=== PATIENT | female | born 1995 | race Two or more races ===

== ENCOUNTER → 2021-06-03 | Outpatient (BNVA) | payer BC, SELFPAY | END | disposition home or self-care (01) | PROVIDERS: PCP Physician Assistant; Visit Provider Urology | DX: I10 Essential (primary) hypertension (principal) ==

== ENCOUNTER 2025-03-25 06:01 | Emergency (ER) | payer BC, SELFPAY ==
[2025-03-25 06:02] VITALS: BMI 36.3
[2025-03-25 06:17] VITALS: BP 149/87; PULSE 109; RESP 16; TEMP 36.6; O2SAT 96
--- NOTE | 2025-03-25 06:28 | XR_ITS ---
EXAMINATION: PA lateral chest 2 views TECHNIQUE: Upright PA lateral chest 2 views Date and time: March 25, 2025, 0652 hours INDICATIONS: Shortness of breath coughing beginning 2 days ago. FINDINGS: Normal heart size Lungs are clear. Osseous structures intact IMPRESSION: No active disease
[2025-03-25] MEDS: IBUPROFEN TAB 600 MG TABLET PO (06:39)
[2025-03-25 07:19] LABS: Basophils # (Auto) 0.0 Thou/mm3 (0.0-0.2); Basophils % (Auto) 0 % (0-2.5); Eosinophils # (Auto) 0.1 Thou/mm3 (0.0-0.5); Eosinophils % (Auto) 2 % (0-10); Hematocrit 38.6 % (36.0-46.0); Hemoglobin 12.7 g/dL (12.0-16.0); Immature Granulocytes Auto 0.02 Thou/mm3 (0.00-0.00); Lymphocytes # (Auto) 2.0 Thou/mm3 (1.0-4.8); Lymphocytes % (Auto) 27 % (10-50); Mean Corpuscular HGB Conc 32.9 g/dl (31.0-37.0); Mean Corpuscular Hemoglobin 28.5 pg (25.0-35.0); Mean Corpuscular Volume 87 fL (80-100); Monocytes # (Auto) 0.7 Thou/mm3 (0.0-0.8); Monocytes % (Auto) 10 % (0-12); Neutrophils # (Auto) 4.6 Thou/mm3 (1.8-7.7); Neutrophils % (Auto) 61 % (37-80); Nucleated Red Blood Cell # 0.00 Thou/mm3 (0.00-0.00); Nucleated Red Blood Cell % 0 /100 WBC (0); Platelet Count 259 Thou/mm3 (140-440); RDW Standard Deviation 40.6 fL (36.4-46.3); Red Blood Count 4.46 Miln/mm3 (4.00-5.20); White Blood Count 7.5 Thou/mm3 (3.6-11.0)
[2025-03-25 07:37] LABS: Alanine Aminotransferase 52 U/L (10-49); Albumin, Serum 4.6 gm/dL (3.5-5.0); Albumin/Globulin Ratio 1.4 (1.2-2.2); Alkaline Phosphatase 77 U/L (46-116); Anion Gap 8 (7-16); Aspartate Amino Transferase 41 U/L (0-34); BUN/Creatinine Ratio 13 Ratio (12-20); Bilirubin,Total 0.7 mg/dL (0.3-1.2); Blood Urea Nitrogen 9 mg/dL (9-23); Calcium 9.5 mg/dL (8.3-10.6); Calcium (Corrected) 9.5 mg/dL (8.5-10.1); Carbon Dioxide 24.6 mMol/L (20.0-31.0); Chloride 104 mMol/L (98-107); Creatinine (Component) 0.7 mg/dL (0.6-1.3); Estimated Creatinine Clearance 128.5 mL/min (>60); Globulin 3.3 gm/dL (2.3-3.5); Glucose 80 mg/dL (74-106); Lipase 25 U/L (12-53); Osmolality,Calculated 271 (275-295); Potassium 4.1 mMol/L (3.4-5.1); Sodium 137 mMol/L (136-145); Total Protein 7.9 gm/dL (5.7-8.2); Troponin I < 0.002 ng/mL (0.0-0.045); eGFR > 60 See Note
[2025-03-25 07:45] LABS: B-Type Natriuretic Peptide < 20 pg/mL (0-100); D-Dimer < 250 ng/mL (<600)
[2025-03-25 08:02] LABS: HCG,Qualitative Serum Negative
--- NOTE | 2025-03-25 08:16 | EDNOTE_ITS ---
<Statement entered by Sharon Torres MD - 03/25/25 08:56> As co-signing physician, I was present and available for consult prn. I concur with the plan and care as documented by the midlevel provider. ED Chest Pain RME/HPI General Chief Complaint: Chest Pain Stated Complaint: CHEST PAIN Time Seen by Provider: 03/25/25 06:03 Arrival date/time: 03/25/25 06:01 Related Data Home Medications ?Medication ?Instructions ?Recorded ?Confirmed vitamins with calcium 1 tab PO QDAY 04/30/23 08/24/23 no.72-iron 27 mg-folic acid 1 mg tablet ( Plus (calcium carbonate)) Previous Rx's ?Medication ?Instructions ?Recorded hydrocodone 5 mg-acetaminophen 325 1 tab PO Q6H PRN pa in #20 tabs 08/27/23 mg tablet ibuprofen 600 mg tablet 600 mg PO Q6H PRN pain #30 t abs 08/28/23 Allergies Allergy/AdvReac Type Severity Reaction Status Date / Time phenazopyridine (From Allergy Severe Anaphylaxis Verified 03/25/25 06:05 Pyridium) ED Exam Narrative Physical exam: Constitutional: Patient alert and oriented. Well appearing. No acute distress. Not toxic appearing. Head: Normocephalic, atraumatic. Eyes: Periorbital regions bilaterally normal to inspection. Conjunctiva clear bilaterally. Sclera anicteric bilaterally. Pupils equal, round, reactive to light bilaterally. Extraocular movements intact bilaterally. Mouth/Throat: Mucous membranes moist. No stridor or muffled voice. No trismus. Handling secretions without difficulty. Airway widely patent. Neck: Supple. Trachea midline. No JVD. No nuchal rigidity. Normal range of motion. Respiratory: Normal effort. No accessory muscle use or respiratory distress. Lungs clear to auscultation bilaterally without rhonchi, wheezes, or crackles. Positive left sided chest wall tenderness at midclavicular line around the 2nd and 3rd intercostal spaces. Cardiovascular: RRR. Normal S1/S2. No murmurs or rubs. Radial pulses intact bilaterally. Abdomen: Soft. Non-distended. Non-tender throughout. No pulsatile mass. No guarding or rebound. Negative Pink?s sign. Negative McBurney?s point tenderness. Negative Rovsing?s. Back: No midline tenderness or step-offs. No CVA tenderness to palpation bilaterally. Upper Extremities: No gross deformities. Lower Extremities: No gross deformities. No edema or calf tenderness. Neuro: Speech normal. No gross motor or sensory deficits to upper or lower extremities bilaterally. GCS 15. CN II?XII grossly intact. Skin: Warm, dry, normal color. Psych: Normal affect. Cooperative. Normal insight. Course Course Course Narrative: MDM The patient presents with chest pain. Differential diagnosis includes musculoskeletal chest pain versus costochondritis versus anxiety Less likely etiologies include: PE: Wells low risk ACS: HEART Score low risk, suggesting low probability of major adverse cardiac event in the next 6 weeks. Aortic Dissection: Unlikely given palpable pulses, warm extremities bilaterally, and no radiation of pain. Tamponade: Unlikely given absence of hypotension, muffled heart sounds, JVD, friction rub, narrow pulse pressure ?30, low-voltage EKG, or enlarged cardiac silhouette. Endocarditis: Unlikely as no Humphrey criteria present (Patel spots, splinter hemorrhages, Osler nodes). CHF: Unlikely given no JVD, peripheral edema, or orthopnea. The patient is clinically well-appearing and stable. Evaluation today does not suggest cardiac ischemia, pulmonary embolism, aortic dissection, or other life- threatening etiology. These diagnoses were considered and excluded clinically and with appropriate studies. Nonetheless, it is understood by both patient and provider that no evaluation can entirely exclude such conditions. Labs without severe metabolic or electrolyte abnormality including a negative troponin, D-dimer, BNP Admission was considered but is not indicated based on today?s evaluation and low-risk stratification. The patient is strongly encouraged to follow up with their PMD and/or dishwasher within the next 1-2 days. Strict ER return precautions advised for any continued, worsening, or new symptoms or any concerns at all. At the time of reassessment prior to discharge, the patient remains alert and oriented ?3 with GCS 15. Vitals are normal, pain is controlled, and the patient is tolerating oral intake without nausea or vomiting. The patient is agreeable to discharge and verbalizes understanding of the diagnosis, studies, treatment plan, medications (including side effects/precautions), and strict ER return precautions as discussed in the ED. All concerns were addressed, and the patient is comfortable with the plan. Quality Measures none Orders Category Date Time Status Continuous EKG monitoring NOW Care 03/25/25 06:28 Active Continuous Pulse Oximetry NOW Care 03/25/25 06:28 Active EKG (ED ONLY) *Do not use* NOW Care 03/25/25 06:06 Completed EKG (ED ONLY) *Do not use* NOW Care 03/25/25 06:28 Completed EKG (ED Only) Stat Exams 03/25/25 06:06 Ordered EKG (ED Only) Stat Exams 03/25/25 06:28 Ordered XR chest 2V Stat Exams 03/25/25 06:28 Completed B-Type Natriuretic Peptide Stat Lab 03/25/25 07:05 Completed CBC Stat Lab 03/25/25 07:05 Completed Comprehensive Metabolic Panel Stat Lab 03/25/25 07:05 Completed D-Dimer Stat Lab 03/25/25 07:05 Completed HCG,Qualitative Serum Stat Lab 03/25/25 07:05 Completed INR [Prothrombin Time with INR] Stat Lab 03/25/25 07:05 Completed Lipase Stat Lab 03/25/25 07:05 Completed Troponin I Stat Lab 03/25/25 07:05 Completed Ibuprofen Tab [Motrin Tab] Med 03/25/25 06:28 Discontinued 600 mg PO X1 ONE Vital Signs Vital signs: Vital Signs Temperature 97.8 F 03/25/25 06:17 Pulse Rate 109 H 03/25/25 06:17 Respiratory Rate 16 03/25/25 06:17 Blood Pressure 149/87 H 03/25/25 06:17 Pulse Oximetry (%) 96 03/25/25 06:17 Oxygen Delivery Method Room Air 03/25/25 06:17 PROCEDURES: EKG Interpretation #1: Date of EK03/25/25 Time of EK:15 Interpretation: Interpreted by me EKG Impression: Normal sinus rhythm Additional EKG comment: Isolated T wave inversion noted in lead III and nonspecific ST abnormalities noted throughout however no ST elevation, right axis deviation, sinus tachycardia Chest Pain Patient data External records reviewed:: [facility] previous records Clinical information provided by:: patient Social determinants that could affect healthcare access:: none Patient has the following chronic illnesses:: As noted How is presenting disease/condition affected by chronic disease/condition?: exacerbated by Evaluation data The following diagnostics were reviewed and interpreted by me:: other (specify) Lab and/or radiology exams considered but not ordered:: Additional Labs and radiology considered, but not ordered as they were not clinically indicated at this time. Interpretation Summary: As noted, chest x-ray without acute cardiopulmonary abnormality Medications / Prescriptions Medications or Prescriptions considered but not ordered:: I ordered medications based on the patient?s clinical needs and assessment, as documented in the chart. For medications not prescribed, they were not indicated for the patient's current condition, and I determined they were unnecessary at this time to avoid potential risks or complications. Medication administrations:: Medication Administration History Discontinued Medications Ibuprofen (Ibuprofen Tab 600 Mg Tablet) 600 mg PO X1 ONE Stop: 03/25/25 06:29 Last Admin: 03/25/25 06:39 Dose: 600 mg Documented By: WHIT As noted Consultations Consultation(s) initiated? (list below): No Diagnosis Most likely diagnosis given after review of the tests above:: As noted Admission Indicated Admission indicated?: not indicated Admission Request Was there a request for admission?: No Disposition Plan Disposition Plan: Discharge Discharge Attestation Discharge Attestation: The patient and all family members were given an opportunity to ask questions and understood the discharge instructions. Discharge instructions specifically effects, indications for sooner follow up or return to the emergency department, and the expected course of current diagnosis. Patient condition: Stable Discharge Plan Plan Patient Disposition: HOME (Self Care) Patient condition on transfer: Stable Prescriptions/Referrals Prescriptions/Med Rec: No Action hydrocodone-acetaminophen 5-325 mg tablet 1 tab PO Q6H MDD 4 PRN (Reason: pain) Qty: 20 0RF ibuprofen 600 mg tablet 600 mg PO Q6H PRN (Reason: pain) Qty: 30 0RF Plus (calcium carb) 27 mg iron- 1 mg tablet 1 tab PO QDAY Patient Comments: Take 1 tablet by mouth once a day Referrals: Natalia Everett PA-C [Primary Care Provider, Family Practice] - In 1 week Problem List Clinical Impression: Chest pain Patient/Caregiver Discharge Instructions Education Materials: ED Chest Pain, Uncertain Cause Additional Instructions: Follow up with your primary medical doctor within 24 hours. Return to the Emergency Room immediately for any new, worsening, continuing symptoms or any concerns at all. Return to the Emergency Room within 24 hours if you are unable to follow up with your primary medical doctor within 24 hours. Follow-up with a dishwasher this week as well Print Language: Polish Stand Alone Forms: Deanna Award Info., Patient Portal Info Letter TIFFANIE/EVAN Supervising Physician BRUCE Supervising Physician: Dr. Torres
[2025-03-25 08:28] LABS: INR 1.0 (0.9-1.3); Prothrombin Time 10.7 Seconds (9.0-12.2)
[2025-03-25 08:31] VITALS: BP 124/81; PULSE 86; RESP 18; TEMP 36.6; O2SAT 99
== END 2025-03-25 08:45 | disposition home or self-care (01) ==
PROVIDERS: Emergency Provider Physician Assistant; PCP Physician Assistant
DX: R07.9 Chest pain, unspecified (principal); R06.02 Shortness of breath; R05.9 Cough, unspecified
CPT/HCPCS: 36415; 71046; 80053; 83690; 83880; 84484; 84703; 85025; 85379; 85610; 93005; 99283; A9270